=== PATIENT | male | born 1980 | race Caucasian/White ===

== ENCOUNTER 2021-04-25 06:59 | Emergency (ER) | payer OTHER | END 2021-04-25 07:54 | disposition home or self-care (01) | LOC: ER1 06:59 | DX: M19.022 Primary osteoarthritis, left elbow (principal); M19.021 Primary osteoarthritis, right elbow; M19.042 Primary osteoarthritis, left hand; M19.041 Primary osteoarthritis, right hand; M19.072 Primary osteoarthritis, left ankle and foot; M19.071 Primary osteoarthritis, right ankle and foot; Z88.8 Allergy status to other drugs, medicaments and biological substances; Z79.899 Other long term (current) drug therapy | CPT/HCPCS: 99283 ==

== ENCOUNTER 2021-05-12 03:51 | Emergency (ER) | payer SELFPAY | END 2021-05-12 05:00 | disposition home or self-care (01) | LOC: ER1 03:51 | DX: M06.9 Rheumatoid arthritis, unspecified (principal); Z79.52 Long term (current) use of systemic steroids; Z88.5 Allergy status to narcotic agent; Z88.6 Allergy status to analgesic agent | CPT/HCPCS: 99283 ==

== ENCOUNTER 2021-06-19 09:54 | Emergency (ER) | payer SELFPAY ==
[2021-06-19] MEDS ORDERED: Voltaren Gel 1 % TOP (12:14)
== END 2021-06-19 12:35 | disposition home or self-care (01) ==
LOC: ER1 09:54
DX: M06.9 Rheumatoid arthritis, unspecified (principal); Z79.52 Long term (current) use of systemic steroids; Z88.5 Allergy status to narcotic agent; Z88.8 Allergy status to other drugs, medicaments and biological substances
CPT/HCPCS: 99283; J2270

== ENCOUNTER 2021-08-07 21:20 | Emergency (ER) | payer SELFPAY ==
[~2021-08-07 21:20] MED LIST: Voltaren Gel 1 % TOP
== END 2021-08-07 22:24 | disposition home or self-care (01) ==
LOC: ER1 21:20
DX: G89.29 Other chronic pain (principal); M25.522 Pain in left elbow; M25.521 Pain in right elbow; M25.571 Pain in right ankle and joints of right foot; M25.572 Pain in left ankle and joints of left foot; M25.562 Pain in left knee; M25.561 Pain in right knee; M25.542 Pain in joints of left hand; M25.541 Pain in joints of right hand; Z88.6 Allergy status to analgesic agent; Z88.5 Allergy status to narcotic agent; Z88.8 Allergy status to other drugs, medicaments and biological substances
CPT/HCPCS: 99283